=== PATIENT | female | born 1930 | race Caucasian/White ===

== ENCOUNTER 2016-07-13 14:24 | Emergency (ER) | payer MEDICARE, BC ==
[~2016-07-13] VITALS: Ht 157.5 cm; Wt 49.9 kg
[~2016-07-13 14:24] MED LIST: ATOR10TA PO; CARV6.252 PO; Rivaroxaban PO
[2016-07-13 14:37] VITALS: BP 172/91
--- NOTE | 2016-07-13 15:08 | NUR ---
PT TO RADIOLOGY FOR HEAD CT SCAN AND HIP XRAY VIA WHEELCHAIR.
== END 2016-07-13 16:05 | disposition home or self-care (01) ==
LOC: ER 14:26
DX: S70.02XA Contusion of left hip, initial encounter (principal); S70.01XA Contusion of right hip, initial encounter; M25.552 Pain in left hip; I10 Essential (primary) hypertension; M19.90 Unspecified osteoarthritis, unspecified site; I48.91 Unspecified atrial fibrillation; Z85.3 Personal history of malignant neoplasm of breast; W18.39XA Other fall on same level, initial encounter; Y93.89 Activity, other specified; Y92.89 Other specified places as the place of occurrence of the external cause; Y99.9 Unspecified external cause status
CPT/HCPCS: 70450-TC; 73510-TC; A4606; Z7610

== ENCOUNTER 2016-12-28 13:12 | Emergency (ER) | payer MEDICARE, BC ==
[~2016-12-28] VITALS: Ht 162.6 cm; Wt 61.2 kg
--- NOTE | 2016-12-28 13:15 | NUR ---
AAOX4, BIB RA 39 C/O WEAKNESS, WALKED INTO A LAUNDRYMAT FOR HELP. SKIN IS WARM AND DRY. SF=794IS/DL MILLWRIGHT. RR IS EVEN AND UNLABORED WITH NAD NOTED. ASSISTED TO HOSPITAL GOWN. PLACED ON MONITOR. WILL CONTINUOUSLY MONITOR THE PATIENT. DR HANNA AT BS FOR EVAL.
--- NOTE | 2016-12-28 13:16 | NUR ---
CALLED VICTORIANO CUSTOM BIKE BUILDER.
[2016-12-28] MEDS ORDERED: IV NS 0.9% 500 ML BAG IV ONE (13:30)
--- NOTE | 2016-12-28 13:30 | NUR ---
VICTORIANO, RETAIL BUYER AT
[2016-12-28 13:46] LABS: BASOPHILS % (AUTO) 0.8 % (0.0-2.0); EOSINOPHILS % (AUTO) 0.9 % (0.0-6.0); HEMATOCRIT 44 % (33-45); HEMOGLOBIN 14.7 g/dL (11.5-14.8); LYMPHOCYTES # (AUTO) 0.7 /CMM (0.8-4.8); LYMPHOCYTES % (AUTO) 13.4 % (20.0-44.0); MEAN CORPUSCULAR HEMOGLOBIN 32 PG (26.0-33.0); MEAN CORPUSCULAR HGB CONC 33 g/dl (31.0-36.0); MEAN CORPUSCULAR VOLUME 95 fL (82-100); MONOCYTES # (AUTO) 0.4 /CMM (0.1-1.30); MONOCYTES % (AUTO) 7.2 % (2.0-12.0); NEUTROPHILS % (AUTO) 77.7 % (43.0-81.0); PLATELET COUNT (AUTO) 199 /CMM (150-450); RDW COEFFICIENT OF VARIATION 12.6 (11.5-15.0); RED BLOOD CELL COUNT(AUTO) 4.66 MIL/uL (4.0-5.2); WHITE BLOOD COUNT (AUTO) 5.1 K/uL (4.3-11.0)
--- NOTE | 2016-12-28 13:51 | NUR ---
Social service consult requested by ED FRANTZ Arevalo for home safety. KRISTOPHER met with pt. bedside. Pt. is a 86 year old female who is alert and oriented x4. Pt. states she resides alone at [address], [address] in [place]. Pt. states, " I am always taken back by people questioning me about living alone". KRISTOPHER informed pt., she asked her the question to confirm her safety that home. Pt. is independent with her ADL's at home. Pt. understood. Pt. is a . Pt. has no children. Pt. has a sister Sharyn who has Cancer and is very sick. KRISTOPHER inquired if her sister Shannon is her emergency contact. Pt. states for now she is but it is a good question you ask. Pt. states she has a best friend in [place] but is the same age as her. Pt. stated she was heading to the library today and got lost and kept walking. Pt. states she stopped driving 6 months ago due to having syncope episodes. KRISTOPHER discussed assisted living options with pt. however pt. declined stating she likes her privacy. KRISTOPHER offered pt. resources to Assisted living, however pt. declined stating she has some at home. No other social service needs are required at this time. Pt. will need taxi transportation back home once medically cleared. KRISTOPHER is available if needed.
[2016-12-28 13:59] LABS: CALCIUM, SERUM 9.6 mg/dL (8.5-10.1); CARBON DIOXIDE 29 mmol/L (21-32); CHLORIDE 108 mmol/L (98-107); CREATININE 0.9 mg/dL (0.6-1.3); GLUCOSE 141 mg/dL (74-106); POTASSIUM 3.7 mmol/L (3.5-5.1); SODIUM SERUM 144 mmol/L (136-145); UREA NITROGEN, BLOOD 23 mg/dL (7-18)
--- NOTE | 2016-12-28 14:07 | NUR ---
XRAY IN PROGRESS AT BS
--- NOTE | 2016-12-28 14:50 | NUR ---
CALLED [facility] FOR TRANSPORT ETA OF 15 MINS WAS GIVEN. TRIP#[id number]
[2016-12-28 14:59] LABS: TROPONIN I < 0.017 ng/mL (0.00-0.056)
[2016-12-28 15:14] VITALS: BP 148/95
--- NOTE | 2016-12-28 15:16 | NUR ---
CALLED [facility] TO CANCEL TRANSPORT.
--- NOTE | 2016-12-28 15:18 | NUR ---
IV removed. Catheter intact and site benign. Pressure and 4x4 applied to site. No bleeding noted.Patient discharged to home in stable condition. Written and verbal after care instructions given. Patient verbalizes understanding of instruction.
--- NOTE | 2016-12-28 15:20 | NUR ---
TRANSPORTED PATIENT VIA TAXI. AAOX4. AMBULATES WITH STABLE GAIT.
== END 2016-12-28 15:21 | disposition home or self-care (01) ==
LOC: ER 13:13
DX: I48.91 Unspecified atrial fibrillation (principal); R53.1 Weakness; I10 Essential (primary) hypertension; M19.90 Unspecified osteoarthritis, unspecified site; C50.912 Malignant neoplasm of unspecified site of left female breast; Z98.890 Other specified postprocedural states; Z79.01 Long term (current) use of anticoagulants
CPT/HCPCS: 36415; 71010; 80048; 84484; 85025; 93005; 99285; A4606; J7040; Z7610

== ENCOUNTER 2017-06-05 23:01 | Emergency (ER) | payer MEDICARE, BC ==
[~2017-06-05] VITALS: Ht 167.6 cm; Wt 74.8 kg
--- NOTE | 2017-06-05 23:35 | NUR ---
PT BIBSELF C/O "VAGINAL BLEED SINCE 1800" PT AOX3 RR EVEN AND UNLABORED. NO SOB NOTED. NAD NOTED. NO NVD AT THIS TIME. PT GOWNED AND PLACED ON MONITOR WAITING FOR MD HARP.
[2017-06-06 00:08] LABS: BASOPHILS % (AUTO) 0.5 % (0.0-2.0); EOSINOPHILS % (AUTO) 1.5 % (0.0-6.0); HEMATOCRIT 41 % (33-45); HEMOGLOBIN 13.9 g/dL (11.5-14.8); LYMPHOCYTES # (AUTO) 0.9 /CMM (0.8-4.8); LYMPHOCYTES % (AUTO) 17.8 % (20.0-44.0); MEAN CORPUSCULAR HGB CONC 34 g/dl (31.0-36.0); MEAN CORPUSCULAR VOLUME 96 fL (82-100); MONOCYTES # (AUTO) 0.5 /CMM (0.1-1.30); MONOCYTES % (AUTO) 10.8 % (2.0-12.0); NEUTROPHILS # (AUTO) 3.4 /CMM (1.8-8.9); NEUTROPHILS % (AUTO) 69.4 % (43.0-81.0); PLATELET COUNT (AUTO) 234 /CMM (150-450); RDW COEFFICIENT OF VARIATION 14.3 (11.5-15.0); RED BLOOD CELL COUNT(AUTO) 4.25 MIL/uL (4.0-5.2)
[2017-06-06 00:19] LABS: CALCIUM, SERUM 9.7 mg/dL (8.5-10.1); CARBON DIOXIDE 30 mmol/L (21-32); CHLORIDE 104 mmol/L (98-107); CREATININE 0.8 mg/dL (0.6-1.3); GLUCOSE 92 mg/dL (74-106); SODIUM SERUM 144 mmol/L (136-145); UREA NITROGEN, BLOOD 28 mg/dL (7-18)
[2017-06-06 00:23] LABS: INR 1.76 (0.87-1.13)
[2017-06-06 00:25] LABS: ALANINE AMINOTRANSFERASE 46 U/L (12-78); ALBUMIN 4.1 g/dL (3.4-5.0); ALKALINE PHOSPHATASE 123 U/L (46-116); ASPARTATE AMINOTRANSFERASE 28 U/L (15-37); BILIRUBIN,DIRECT 0.2 mg/dL (0.0-0.2); BILIRUBIN,TOTAL 0.7 mg/dL (0.2-1.0); TOTAL PROTEIN, SERUM 7.8 g/dL (6.4-8.2)
[2017-06-06] MEDS ORDERED: IV NS 0.9% 1,000 ML BAG IV ONE (00:30)
[2017-06-06 00:34] LABS: APPEARANCE,URINE SL CLOUDY (CLEAR); BILIRUBIN,URINE NEGATIVE (NEGATIVE); BLOOD, URINE 3+ Ery/uL (NEGATIVE); COLOR,URINE YELLOW (YELLOW); KETONES,URINE NEGATIVE (NEGATIVE); LEUKOCYTE ESTERASE ,URINE NEGATIVE (NEGATIVE); NITRITE, URINE NEGATIVE (NEGATIVE); PH,URINE 5.5 (5.0-8.0); PROTEIN,URINE NEGATIVE (NEGATIVE); UGLUCOSE NEGATIVE (NEGATIVE); UROBILINOGEN,URINE 0.2 EU/dL (0.2)
[2017-06-06 00:39] LABS: BACTERIA,URINE Few /HPF (None Seen); RBC,URINE 81-100 /HPF (0-2); SQUAMOUS EPITHELIAL CELL,UR Few /HPF (None Seen); WBC,URINE 0-2 /HPF (0-3)
[2017-06-06] MEDS ORDERED: IOHEXOL-300 100 ML VIAL IV ONE (00:55)
[2017-06-06] MEDS ORDERED: IV NS 0.9% 250 ML IV ONE (00:55)
--- NOTE | 2017-06-06 00:56 | NUR ---
PT TO CT.
--- NOTE | 2017-06-06 02:20 | NUR ---
DR. RODGERS AT BEDSIDE SPEAKING TO PT REGARDING RESULTS.
[2017-06-06] MEDS ORDERED: POTASSIUM CHLORIDE 20 MEQ TAB.PRT.SR PO ONE ×2 (02:45→03:00)
--- NOTE | 2017-06-06 03:24 | NUR ---
IV removed. Catheter intact and site benign. Pressure and 4x4 applied to site. No bleeding noted. Patient discharged to home in stable condition. Written and verbal after care instructions given. Patient verbalizes understanding of instruction. ambulatory with a steady gait.
[2017-06-06 03:30] VITALS: BP 148/68
== END 2017-06-06 03:30 | disposition home or self-care (01) ==
LOC: ER 23:03
DX: N93.9 Abnormal uterine and vaginal bleeding, unspecified (principal); I11.0 Hypertensive heart disease with heart failure; I50.9 Heart failure, unspecified; I48.91 Unspecified atrial fibrillation; M19.90 Unspecified osteoarthritis, unspecified site; Z85.3 Personal history of malignant neoplasm of breast; Z60.2 Problems related to living alone; Z79.01 Long term (current) use of anticoagulants
CPT/HCPCS: 36415; 80048-TC; 80076-TC; 81000-TC; 85025-TC; 85730-TC; A4606; J7030; J7050; Q9967; Z7610

== ENCOUNTER 2017-07-02 10:29 | Emergency (ER) | payer MEDICARE, BC ==
[~2017-07-02] VITALS: Ht 162.6 cm; Wt 63.5 kg
--- NOTE | 2017-07-02 10:45 | NUR ---
BB SISTER FOR RT LOW BACK PAIN S/P FALL ON SATURDAY, VAG BLEEDING 2 DAYS AGO, H/O SAME SEEN HERE LAST MONTH FOR DYSFUNCTIONAL UTERINE BLEEDING. ALSO C/O LEFT LOWER LEG SWELLING. A/OX 3, BREATHING EVEN AND UNLABORED. NO SOB, NAD, VITALS STABLE. SAFETY AND COMFORT MEASURES IN PLACE. AWAITING MD ORDERS.
[2017-07-02 11:06] LABS: BASOPHILS % (AUTO) 0.8 % (0.0-2.0); EOSINOPHILS % (AUTO) 1.2 % (0.0-6.0); HEMATOCRIT 37 % (33-45); HEMOGLOBIN 12.7 g/dL (11.5-14.8); LYMPHOCYTES # (AUTO) 0.6 /CMM (0.8-4.8); LYMPHOCYTES % (AUTO) 13.7 % (20.0-44.0); MEAN CORPUSCULAR HGB CONC 34 g/dl (31.0-36.0); MEAN CORPUSCULAR VOLUME 94 fL (82-100); MONOCYTES # (AUTO) 0.4 /CMM (0.1-1.30); MONOCYTES % (AUTO) 10.4 % (2.0-12.0); NEUTROPHILS # (AUTO) 3.2 /CMM (1.8-8.9); NEUTROPHILS % (AUTO) 73.9 % (43.0-81.0); PLATELET COUNT (AUTO) 168 /CMM (150-450); RDW COEFFICIENT OF VARIATION 12.9 (11.5-15.0); RED BLOOD CELL COUNT(AUTO) 3.98 MIL/uL (4.0-5.2); WHITE BLOOD COUNT (AUTO) 4.3 K/uL (4.3-11.0)
--- NOTE | 2017-07-02 11:12 | NUR ---
US TECH AT BEDSIDE, - DVT.
[2017-07-02 11:19] LABS: INR 1.38 (0.85-1.15)
[2017-07-02 11:22] LABS: CALCIUM, SERUM 9.5 mg/dL (8.5-10.1); CARBON DIOXIDE 29 mmol/L (21-32); CHLORIDE 106 mmol/L (98-107); CREATININE 0.8 mg/dL (0.6-1.3); GLUCOSE 146 mg/dL (74-106); POTASSIUM 3.6 mmol/L (3.5-5.1); SODIUM SERUM 143 mmol/L (136-145); UREA NITROGEN, BLOOD 23 mg/dL (7-18)
[2017-07-02 11:32] LABS: B-TYPE NATRIURETIC PEPTIDE 1677 PG/ML (0-125)
[2017-07-02 12:26] VITALS: BP 134/81
--- NOTE | 2017-07-02 12:27 | NUR ---
Patient discharged to home in stable condition. Written and verbal after care instructions given. Patient verbalizes understanding of instruction.
== END 2017-07-02 12:26 | disposition home or self-care (01) ==
LOC: ER 10:30
DX: S20.221A Contusion of right back wall of thorax, initial encounter (principal); M79.89 Other specified soft tissue disorders; N93.8 Other specified abnormal uterine and vaginal bleeding; I10 Essential (primary) hypertension; I48.91 Unspecified atrial fibrillation; M19.90 Unspecified osteoarthritis, unspecified site; Z85.3 Personal history of malignant neoplasm of breast; Z60.2 Problems related to living alone; W18.39XA Other fall on same level, initial encounter; Y93.89 Activity, other specified; Y92.89 Other specified places as the place of occurrence of the external cause; Y99.8 Other external cause status
CPT/HCPCS: 36415; 80048; 83880; 85025; 85730; 93971; 99285; A4606; Z7610

== ENCOUNTER 2017-12-16 09:49 | Emergency (ER) | payer MEDICARE, BC ==
[~2017-12-16] VITALS: Ht 157.5 cm; Wt 56.7 kg
--- NOTE | 2017-12-16 09:55 | NUR ---
BIB RA, CAME IN DUE TO DIZZENESS, PATIENT IS ALERT AND ORIENTED X 3. ON ROOM AIR AND TOLERATED WELL. BREATHING EVENLY AND UNLABORED. KEPT COMFORTABLE IN BED. WILL CONTINUE TO MONITOR ACCORDINGLY.
--- NOTE | 2017-12-16 10:00 | NUR ---
DR. PULIDO AT BEDSIDE FOR EVAL.
[2017-12-16 10:23] LABS: EOSINOPHILS % (AUTO) 0.4 % (0.0-6.0); HEMATOCRIT 42 % (33-45); HEMOGLOBIN 14.3 g/dL (11.5-14.8); LYMPHOCYTES # (AUTO) 0.5 /CMM (0.8-4.8); LYMPHOCYTES % (AUTO) 10.7 % (20.0-44.0); MEAN CORPUSCULAR HGB CONC 34 g/dl (31.0-36.0); MEAN CORPUSCULAR VOLUME 94 fL (82-100); MONOCYTES # (AUTO) 0.4 /CMM (0.1-1.30); MONOCYTES % (AUTO) 8.5 % (2.0-12.0); NEUTROPHILS # (AUTO) 3.4 /CMM (1.8-8.9); NEUTROPHILS % (AUTO) 79.4 % (43.0-81.0); PLATELET COUNT (AUTO) 211 /CMM (150-450); RDW COEFFICIENT OF VARIATION 12.3 (11.5-15.0); RED BLOOD CELL COUNT(AUTO) 4.52 MIL/uL (4.0-5.2); WHITE BLOOD COUNT (AUTO) 4.4 K/uL (4.3-11.0)
[2017-12-16 10:32] LABS: CALCIUM, SERUM 9.4 mg/dL (8.5-10.1); CARBON DIOXIDE 33 mmol/L (21-32); CHLORIDE 106 mmol/L (98-107); CREATININE 0.8 mg/dL (0.6-1.3); GLUCOSE 137 mg/dL (74-106); POTASSIUM 3.3 mmol/L (3.5-5.1); SODIUM SERUM 144 mmol/L (136-145); UREA NITROGEN, BLOOD 31 mg/dL (7-18)
[2017-12-16 10:38] LABS: ALANINE AMINOTRANSFERASE 26 U/L (12-78); ALBUMIN 3.6 g/dL (3.4-5.0); ALKALINE PHOSPHATASE 93 U/L (46-116); ASPARTATE AMINOTRANSFERASE 20 U/L (15-37); BILIRUBIN,DIRECT 0.2 mg/dL (0.0-0.2); BILIRUBIN,TOTAL 1.1 mg/dL (0.2-1.0); TOTAL PROTEIN, SERUM 6.5 g/dL (6.4-8.2)
[2017-12-16 10:39] LABS: APPEARANCE,URINE Clear (CLEAR); BILIRUBIN,URINE Negative (NEGATIVE); BLOOD, URINE Trace-intact Ery/uL (NEGATIVE); COLOR,URINE Yellow (YELLOW); KETONES,URINE 15 (NEGATIVE); LEUKOCYTE ESTERASE ,URINE Negative (NEGATIVE); NITRITE, URINE Negative (NEGATIVE); PROTEIN,URINE Trace mg/dl (NEGATIVE); UGLUCOSE Negative (NEGATIVE); UROBILINOGEN,URINE 0.2 EU/dL (0.2)
[2017-12-16 10:40] LABS: TROPONIN I < 0.017 ng/mL (0.00-0.056)
--- NOTE | 2017-12-16 10:40 | NUR ---
TRANSPORTED TO RADIOLOGY DEPARTMENT FOR CT VIA RHANA.
[2017-12-16 10:45] LABS: BACTERIA,URINE None seen /HPF (None Seen); SQUAMOUS EPITHELIAL CELL,UR Few /HPF (None Seen); WBC,URINE 0-2 /HPF (0-3)
[2017-12-16 11:12] LABS: INR 3.23 (0.85-1.15)
[2017-12-16 13:03] VITALS: BP 134/70
--- NOTE | 2017-12-16 13:04 | NUR ---
PATIENT DISCHARGE VIA WHEELCHAIR ACCOMANIED BY RN. LEFT IN STABLE CONDITION.
== END 2017-12-16 13:05 | disposition home or self-care (01) ==
LOC: ER 09:50
DX: R53.1 Weakness (principal); I10 Essential (primary) hypertension; I48.91 Unspecified atrial fibrillation; F41.9 Anxiety disorder, unspecified; Z85.3 Personal history of malignant neoplasm of breast; Z88.8 Allergy status to other drugs, medicaments and biological substances; Z60.2 Problems related to living alone
CPT/HCPCS: 36415; 70450; 71045; 80048; 80076; 81001; 83605; 84484; 85025; 85730; 87040 ×2; 87086; 93005; 99285; A4606; 81000-TC; Z7610

== ENCOUNTER 2018-02-12 20:14 | Inpatient (IN) | payer MEDICARE, BC ==
[~2018-02-12] VITALS: Ht 160 cm; Wt 56.2 kg
[2018-02-12 22:10] VITALS: BP 121/58
--- NOTE | 2018-02-12 22:10 | NUR ---
GPS/RN-NOTES ADMITTED AN 87 YR-OLD FEMALE PATIENT FROM [facility]. PATIENT ON 5150 FOR GD. PATIENT ARRIVED ON THIS UNIT AT 2210 VIA STRETCHER WITH 2 [facility] CREW. PER HOLD PATIENT IS PARANOID, DISHEVELED, AGITATED, THREATENING BEHAVIOR. PATIENT DOES NOT SLEEP, WANDERS AT NIGHT. UPON FACE TO FACE ASSESSMENT PATIENT ASLEEP, AROUSES EASILY. NO MANIFESTATION OF PAIN OR DISCOMFORT AT THIS TIME. PATIENT WITH NO DISTRESS, NOR SOB AT THIS TIME. RESPIRATION IS EVEN AND UNLABORED. PATIENT IS A/O X 1, CONFUSED, REORIENTATION PROVIDED. PATIENT IS UNDER THE PSYCHIATRIC CARE OF DR. KUMAR AND THE MEDICAL CARE OF MJ HANCOCK. PATIENT BELONGINGS WERE INVENTORIED AND CHECKED FOR CONTRABAND. SKIN ASSESSMENT DONE. FALL PRECAUTIONS IMPLEMENTED AT ALL TIMES. WILL CONTINUE TO MONITOR Q15 MIN CHECK FOR SAFETY AND BEHAVIOR. Addendum: 02/13/18 at 0604 by DALY CANO RN PATIENT NOTED TO BE ANXIOUS, EASILY GETS IRRITABLE, DISHEVELED AND UNKEMPT.
[2018-02-12] MEDS ORDERED: CEPH-570 PO (22:52)
[2018-02-12] MEDS ORDERED: LABE100T5 PO (22:53)
[2018-02-12] MEDS ORDERED: WARF4TAB41 PO (22:54)
[2018-02-12] MEDS ORDERED: VALS40TA4 PO (23:02)
[2018-02-12] MEDS ORDERED: ACETAMINOPHEN 325 MG TABLET PO PRN (23:30)
[2018-02-12] MEDS ORDERED: MAG HYDROX/AL HYDROX/SIMETH 30 ML UDC PO PRN (23:30)
[2018-02-12] MEDS ORDERED: MAGNESIUM HYDROXIDE 30 ML UDC PO PRN (23:30)
[2018-02-13 07:07] LABS: BASOPHILS % (AUTO) 0.5 % (0.0-2.0); EOSINOPHILS % (AUTO) 0.3 % (0.0-6.0); HEMATOCRIT 44 % (33-45); HEMOGLOBIN 14.5 g/dL (11.5-14.8); LYMPHOCYTES # (AUTO) 0.7 /CMM (0.8-4.8); LYMPHOCYTES % (AUTO) 14.2 % (20.0-44.0); MEAN CORPUSCULAR HGB CONC 33 g/dl (31.0-36.0); MEAN CORPUSCULAR VOLUME 97 fL (82-100); MONOCYTES # (AUTO) 0.7 /CMM (0.1-1.30); MONOCYTES % (AUTO) 12.9 % (2.0-12.0); NEUTROPHILS # (AUTO) 3.7 /CMM (1.8-8.9); NEUTROPHILS % (AUTO) 72.1 % (43.0-81.0); PLATELET COUNT (AUTO) 242 /CMM (150-450); RED BLOOD CELL COUNT(AUTO) 4.53 MIL/uL (4.0-5.2); WHITE BLOOD COUNT (AUTO) 5.1 K/uL (4.3-11.0)
[2018-02-13 07:20] LABS: ALANINE AMINOTRANSFERASE 25 U/L (12-78); ALBUMIN 3.4 g/dL (3.4-5.0); ALKALINE PHOSPHATASE 110 U/L (46-116); ASPARTATE AMINOTRANSFERASE 21 U/L (15-37); BILIRUBIN,TOTAL 1.2 mg/dL (0.2-1.0); CALCIUM, SERUM 9.7 mg/dL (8.5-10.1); CARBON DIOXIDE 32 mmol/L (21-32); CHLORIDE 106 mmol/L (98-107); CREATININE 0.7 mg/dL (0.6-1.3); GLUCOSE 108 mg/dL (74-106); POTASSIUM 2.9 mmol/L (3.5-5.1); SODIUM SERUM 147 mmol/L (136-145); TOTAL PROTEIN, SERUM 7.3 g/dL (6.4-8.2); UREA NITROGEN, BLOOD 16 mg/dL (7-18)
[2018-02-13 07:25] LABS: CHOLESTEROL 167 mg/dL (<200); HDL CHOLESTEROL 84 mg/dL (40-60); LDL 78 mg/dL (0-99); TRIGLYCERIDES 51 mg/dL (30-150)
[2018-02-13 08:00] VITALS: BP 147/76
[2018-02-13] MEDS: VALSARTAN 40 MG TABLET PO SCH (09:30)
[2018-02-13] MEDS: clonazePAM 0.5 MG TABLET PO PRN (09:30)
[2018-02-13] MEDS: LABETALOL HCL (100MG) 100 MG TABLET PO SCH ×2 (09:30→17:18)
[2018-02-13] MEDS: CEPHALEXIN MONOHYDRATE 500 MG CAPSULE PO SCH ×3 (09:30→17:17)
[2018-02-13] MEDS: CARVEDILOL 6.25 MG TABLET PO SCH ×2 (09:31→20:34)
[2018-02-13] MEDS: POTASSIUM CHLORIDE 20 MEQ TAB.PRT.SR PO SCH ×3 (10:19→12:13)
--- NOTE | 2018-02-13 12:04 | NUR ---
KRISTOPHER contacted pts sister Sharyn [phone] for collateral information and discharge planning. Addendum: 02/14/18 at 0928 by HAILEE SUMMERS Sister Sharyn, who stated pt began showing signs of Dementia in August and also stated that she began hallucinating a couple of months ago, stating that she would see bodies in her bed. Pts sister also stated that pt forgets how to turn the stove on and off and would sometimes forget to eat.
--- NOTE | 2018-02-13 12:04 | NUR ---
SW was contacted by Mitzi, pediatric social worker at [facility] [phone], who provided SW will collateral information. Addendum: 02/13/18 at 4947 by HAILEE SUMMERS Mitzi also informed SW that she has filed an APS report for self neglect. Case #: [id number]. Mitzi also provided SW will pts apartment managers phone number Carli: [phone]. Addendum: 02/14/18 at 0103 by HAILEE SUMMERS Mtizi reported that apt clinic business manager informed her that pts current living conditions are not sanitary and safe. Mitzi stated that pts apt smells like urine and there is feces in the bathroom. She also stated that pt has not paid rent this month.
--- NOTE | 2018-02-13 12:48 | NUR ---
INITIAL DISCHARGE PLAN: Patient needs placement and will be discharged to a SNF. SW will help form a safe and proper discharge in collaboration with pts sister and MD.
[2018-02-13] MEDS ORDERED: POTASSIUM CHLORIDE 20 MEQ TAB.PRT.SR PO SCH (13:00)
[2018-02-13 13:16] LABS: THYROID STIMULATING HORMONE 2.093 uIU/mL (0.358-3.74)
[2018-02-13] MEDS: QUETIAPINE FUMARATE 25 MG TABLET PO SCH ×2 (13:20→17:17)
[2018-02-13 16:00] VITALS: BP 132/77
[2018-02-13] MEDS: RIVAROXABAN 15 MG TABLET PO SCH (17:24)
[2018-02-13 20:00] VITALS: BP 167/83
--- NOTE | 2018-02-13 20:12 | NUR ---
PATIENT WENT DOWN TO HAVE CT HEAD DONE.
--- NOTE | 2018-02-13 21:05 | NUR ---
PATIENT UPSET, IRRITABLE, AMBULATES/UNSTEADY GAIT. NEARLY FELL WHILE ON HER WAY TO THE TOILET. ATTEMPTED TO GET OUT BY GOING TO THE THE DOOR , AWOL RISK. VERY UNCOOPERATIVE, REPEATS HER QUESTIONS WHY THIS, WHY THAT, STATES, "I AM GOING HOME TODAY". VERY CONFUSED.
[2018-02-13] MEDS: ATORVASTATIN 10 MG TABLET PO SCH (21:54)
[2018-02-13] MEDS: MIRTAZAPINE 15 MG TABLET PO SCH (21:54)
[2018-02-14 00:45] VITALS: BP 167/83
[2018-02-14 07:11] LABS: APPEARANCE,URINE CLEAR (CLEAR); BILIRUBIN,URINE NEGATIVE (NEGATIVE); BLOOD, URINE NEGATIVE Ery/uL (NEGATIVE); COLOR,URINE YELLOW (YELLOW); KETONES,URINE 1+ (NEGATIVE); LEUKOCYTE ESTERASE ,URINE NEGATIVE (NEGATIVE); NITRITE, URINE NEGATIVE (NEGATIVE); PH,URINE 8.5 (5.0-8.0); PROTEIN,URINE TRACE mg/dl (NEGATIVE); UGLUCOSE NEGATIVE (NEGATIVE); UROBILINOGEN,URINE 0.2 EU/dL (0.2)
[2018-02-14 07:26] LABS: RBC,URINE NONE SEEN /HPF (0-2); WBC,URINE 0-2 /HPF (0-3)
[2018-02-14 07:27] LABS: BACTERIA,URINE None seen /HPF (None Seen); SQUAMOUS EPITHELIAL CELL,UR Few /HPF (None Seen)
[2018-02-14 07:45] LABS: BASOPHILS % (AUTO) 1.1 % (0.0-2.0); EOSINOPHILS % (AUTO) 1.4 % (0.0-6.0); HEMATOCRIT 43 % (33-45); HEMOGLOBIN 14.3 g/dL (11.5-14.8); LYMPHOCYTES # (AUTO) 0.9 /CMM (0.8-4.8); LYMPHOCYTES % (AUTO) 20.2 % (20.0-44.0); MEAN CORPUSCULAR HGB CONC 33 g/dl (31.0-36.0); MEAN CORPUSCULAR VOLUME 97 fL (82-100); MONOCYTES # (AUTO) 0.5 /CMM (0.1-1.30); NEUTROPHILS # (AUTO) 2.8 /CMM (1.8-8.9); NEUTROPHILS % (AUTO) 65.3 % (43.0-81.0); PLATELET COUNT (AUTO) 193 /CMM (150-450); RED BLOOD CELL COUNT(AUTO) 4.48 MIL/uL (4.0-5.2); WHITE BLOOD COUNT (AUTO) 4.2 K/uL (4.3-11.0)
[2018-02-14 07:59] LABS: ALANINE AMINOTRANSFERASE 22 U/L (12-78); ALBUMIN 2.9 g/dL (3.4-5.0); ALKALINE PHOSPHATASE 96 U/L (46-116); ASPARTATE AMINOTRANSFERASE 23 U/L (15-37); CALCIUM, SERUM 9.8 mg/dL (8.5-10.1); CARBON DIOXIDE 29 mmol/L (21-32); CHLORIDE 108 mmol/L (98-107); CREATININE 0.6 mg/dL (0.6-1.3); GLUCOSE 91 mg/dL (74-106); PHOSPHORUS 2.3 mg/dL (2.5-4.9); POTASSIUM 3.7 mmol/L (3.5-5.1); SODIUM SERUM 146 mmol/L (136-145); TOTAL PROTEIN, SERUM 6.5 g/dL (6.4-8.2); UREA NITROGEN, BLOOD 16 mg/dL (7-18)
[2018-02-14 08:00] VITALS: BP 161/95
[2018-02-14] MEDS: CARVEDILOL 6.25 MG TABLET PO SCH ×2 (08:50→20:03)
[2018-02-14] MEDS: QUETIAPINE FUMARATE 25 MG TABLET PO SCH ×2 (08:50→16:14)
[2018-02-14] MEDS: CEPHALEXIN MONOHYDRATE 500 MG CAPSULE PO SCH ×3 (08:50→16:14)
[2018-02-14] MEDS: LABETALOL HCL (100MG) 100 MG TABLET PO SCH ×2 (08:50→16:16)
[2018-02-14] MEDS: VALSARTAN 40 MG TABLET PO SCH (08:51)
--- NOTE | 2018-02-14 09:05 | NUR ---
KRISTOPHER received a phone call from pts sister Sharyn [phone] stating that she feels it isn't a good idea to discharge pt to a SNF due to being afraid pt will go "ballistic" if she's discharged to a SNF and not home. KRISTOPHER explained that pt is currently on a hold for grave disability and also informed her the manager social work at [facility] filed an APS report for self neglect and informed SW that pts living conditions were not sanitary and safe. KRISTOPHER also stated to pts sister that due to pt living alone without a career transition specialist and having an open APS case pt cannot be discharged home. KRISTOPHER reminded pts sister that she informed her that pt was not able to do ADL's and would sometimes forget to turn the stove on or off. SW informed pts sister that hospital is liable for a safe and proper discharge; discharging home at the moment is not a safe discharge plan. KRISTOPHER asked pts sister if pt can live with her and she stated that she could not due to conflict between them. KRISTOPHER informed sister that she would discuss this matter with pts psychiatrist Dr. Sparrow and SW supervisor winding department.
[2018-02-14] MEDS ORDERED: K PHOS NEUTRAL 250 MG TABLET PO ONE (10:00)
[2018-02-14 16:00] VITALS: BP 127/83
[2018-02-14] MEDS: RIVAROXABAN 15 MG TABLET PO SCH (16:18)
--- NOTE | 2018-02-14 19:37 | NUR ---
SISTER VISITING, PATIENT UP ON THE GENIA-CHAIR, VERY UNCOOPERATIVE, QUESTIONS AND ARGUES ABOUT HER MEDICATIONS, EASILY GETS IRRITABLE. FAMILY REQUESTED TO ADMINISTER MEDS WHILE SISTER IS AROUND. ROUTINE MEDS WITH SLEEPING WILL BE ADMINISTERED AROUND 1999.
[2018-02-14 20:00] VITALS: BP 132/82
[2018-02-14] MEDS: ATORVASTATIN 10 MG TABLET PO SCH (20:04)
[2018-02-14] MEDS: MIRTAZAPINE 15 MG TABLET PO SCH (20:04)
[2018-02-14] MEDS: TEMAZEPAM 7.5 MG CAPSULE PO PRN (20:04)
--- NOTE | 2018-02-14 20:07 | NUR ---
ROUTINE MEDICATIONS ADMINISTERED AT THIS TIME. PATIENT ARGUED ABOUT HER MEDICATIONS, SAYING SHE HAD THEM ALREADY, EXPLAINED THAT THESE ARE HER ROUTINE NIGHT MEDICATIONS AND A SLEEPING PILL. SISTER VISITS AND IS AWARE OF HER BEHAVIOR REGARDING HER MEDS. PATIENT TOOK HER MEDICATIONS WITH APPLE JUICE.
[2018-02-15 08:00] VITALS: BP 153/82
[2018-02-15] MEDS: VALSARTAN 40 MG TABLET PO SCH (08:24)
[2018-02-15] MEDS: CARVEDILOL 6.25 MG TABLET PO SCH ×3 (08:24→20:54)
[2018-02-15] MEDS: LABETALOL HCL (100MG) 100 MG TABLET PO SCH ×2 (08:24→16:21)
[2018-02-15] MEDS: CEPHALEXIN MONOHYDRATE 500 MG CAPSULE PO SCH ×3 (08:24→16:20)
[2018-02-15] MEDS: QUETIAPINE FUMARATE 25 MG TABLET PO SCH ×2 (08:24→16:20)
[2018-02-15] MEDS: MEMANTINE HCL 5 MG TABLET PO SCH (08:32)
[2018-02-15 16:00] VITALS: BP 142/73
[2018-02-15] MEDS: RIVAROXABAN 15 MG TABLET PO SCH (16:23)
--- NOTE | 2018-02-15 18:43 | NUR ---
GPS/RN-NOTES NOTED PATIENT SCREAMING AND YELLING AT STAFF WITH AGGRESSIVE BEHAVIOR DURING PATIENT CARE/HITTING STAFF WITH BOTH HANDS. REORIENTED AND REDIRECTED PATIENT, PATIENT CALM DOWN AND COOPERATE.
[2018-02-15 20:00] VITALS: BP 139/74
--- NOTE | 2018-02-15 20:55 | NUR ---
GPS RN NOTES Patient refused to take due meds Carvedilol claiming she is not taking any medications other what she is taking at home. Explained to the patient and sister the indication and risk of not taking the medications, patient and the sister verbalized understanding. Will continue to monitor.
[2018-02-15] MEDS: DONEPEZIL 5 MG TABLET PO SCH (21:47)
[2018-02-15] MEDS: MIRTAZAPINE 15 MG TABLET PO SCH (21:47)
[2018-02-15] MEDS: ATORVASTATIN 10 MG TABLET PO SCH (21:47)
[2018-02-16 08:00] VITALS: BP 153/77
[2018-02-16] MEDS: QUETIAPINE FUMARATE 25 MG TABLET PO SCH ×3 (09:00→16:42)
[2018-02-16] MEDS: MEMANTINE HCL 5 MG TABLET PO SCH ×2 (09:00→09:05)
[2018-02-16] MEDS: CEPHALEXIN MONOHYDRATE 500 MG CAPSULE PO SCH ×3 (09:04→16:35)
[2018-02-16] MEDS: VALSARTAN 40 MG TABLET PO SCH (09:04)
[2018-02-16] MEDS: LABETALOL HCL (100MG) 100 MG TABLET PO SCH ×2 (09:05→16:38)
[2018-02-16] MEDS: TRAMADOL HCL 50 MG TABLET PO PRN (14:53)
--- NOTE | 2018-02-16 14:53 | NUR ---
RN NOTES ADMINISTERED TRAMADOL 50 MG PO PRN FOR LOWER BACK PAIN 09/17 PER PATIENT REQUEST, V/S TAKEN BP- 136/78, P-82, CONTINUED MONITORING.
[2018-02-16 16:00] VITALS: BP 125/67
--- NOTE | 2018-02-16 16:38 | NUR ---
RN NOTES ADMINISTERED TYLENOL 650 MG PO PRN FOR LOWER BACK PAIN 07/18 PER PATIENT REQUEST. ALSO PER MD WILKINS ORDERED X-RAY PELVIC AREA. CONTINUED MONITORING.
[2018-02-16] MEDS: RIVAROXABAN 15 MG TABLET PO SCH (16:39)
[2018-02-16] MEDS ORDERED: BESIVANCE LEFTEYE SCH (17:00)
[2018-02-16] MEDS ORDERED: DUREZOL LEFTEYE SCH (17:00)
[2018-02-16 20:12] VITALS: BP 105/62
[2018-02-16] MEDS: CARVEDILOL 6.25 MG TABLET PO SCH (20:24)
--- NOTE | 2018-02-16 21:20 | NUR ---
PT BG- 405 ADMINISTERED 13 UNITS OF LANTUS AND 10 UNITS OF HUMULIN PER SLIDING SCALE, WILL CONTINUE TO MONITOR Addendum: 02/17/18 at 0642 by FERN NATION RN wrong pt
[2018-02-16] MEDS: ATORVASTATIN 10 MG TABLET PO SCH (21:35)
[2018-02-16] MEDS: MIRTAZAPINE 15 MG TABLET PO SCH (21:35)
[2018-02-16] MEDS: DONEPEZIL 5 MG TABLET PO SCH (21:35)
[2018-02-17 08:00] VITALS: BP 146/72
[2018-02-17] MEDS: CEPHALEXIN MONOHYDRATE 500 MG CAPSULE PO SCH ×3 (08:32→16:53)
[2018-02-17] MEDS: VALSARTAN 40 MG TABLET PO SCH (08:32)
[2018-02-17] MEDS: CARVEDILOL 6.25 MG TABLET PO SCH ×2 (08:33→21:40)
[2018-02-17] MEDS: LABETALOL HCL (100MG) 100 MG TABLET PO SCH ×2 (08:33→16:53)
[2018-02-17] MEDS: QUETIAPINE FUMARATE 25 MG TABLET PO SCH ×2 (08:34→16:52)
[2018-02-17] MEDS: DUREZOL LEFTEYE SCH (08:37)
[2018-02-17] MEDS: MEMANTINE HCL 5 MG TABLET PO SCH (08:38)
[2018-02-17] MEDS: BESIVANCE LEFTEYE SCH (08:38)
[2018-02-17] MEDS: TRAMADOL HCL 50 MG TABLET PO PRN (11:54)
--- NOTE | 2018-02-17 14:50 | NUR ---
SW received a phone call from pts sister Sharyn [phone] stating that she has identified a Memory Care Facility for pt. Sister stated she would like pt to be referred to [address] [address] .
--- NOTE | 2018-02-17 14:53 | NUR ---
KRISTOPHER contacted Aracely, gsa coordinator at [address] [address] and requested referral process information. Aracely will fax Physicians Report to KRISTOPHER to fill out. Per Aracely, Physicians Report needs to be completed first before coming to assess pt.
[2018-02-17] MEDS: clonazePAM 0.5 MG TABLET PO PRN (15:32)
[2018-02-17 16:00] VITALS: BP 128/68
[2018-02-17] MEDS: RIVAROXABAN 15 MG TABLET PO SCH (17:02)
--- NOTE | 2018-02-17 19:30 | NUR ---
GPS RN NOTE, RECEIVED PATIENT AWAKE AND IN BED, NO S/S OR COMPLAINTS OF PAIN AT THIS TIME. PATIENT IS DISPLAYING NO S/S OF APPARENT DISTRESS AT THIS TIME. PATIENT BREATHING IS UNLABORED WITH EQUAL RISE AND FALL OF THE CHEST. PATIENT IS ALERT AND ORIENTED X 2 ON ROOM AIR WITH A SPO2 OF 98%. PATIENT IS MED COMPLIANT, CONFUSED AT TIMES, COOPERATIVE, DEPRESSED, ANXIOUS, DISORGANIZED, PARANOID, AND NEEDS REDIRECTION. PATIENT HAS A PATIENT DENIES SUICIDE IDEATIONS AND HOMICIDAL IDEATIONS AT THIS TIME. PATIENT ASSISTED WITH TURNING AND REPOSITIONING Q 2HRS AND PRN FOR COMFORT AND CIRCULATION. PATIENT HAS NO NEEDS AT THIS TIME. PATIENT EDUCATED ON THE USE OF THE CALL JEFFREY. PATIENT BED SIDE RAILS UP X 2 FOR SAFETY, BED IS LOCKED, LOW, AND I WILL CONTINUE TO MONITOR AND MAINTAIN SAFETY Q15 MIN WITH THE HELP OF STAFF.
[2018-02-17 20:21] VITALS: BP 147/98
[2018-02-17] MEDS: ATORVASTATIN 10 MG TABLET PO SCH (21:39)
[2018-02-17] MEDS: MIRTAZAPINE 15 MG TABLET PO SCH (21:40)
[2018-02-17] MEDS: DONEPEZIL 5 MG TABLET PO SCH (21:40)
[2018-02-18 08:00] VITALS: BP 153/75
[2018-02-18] MEDS: QUETIAPINE FUMARATE 25 MG TABLET PO SCH ×4 (08:45→17:47)
[2018-02-18] MEDS: CARVEDILOL 6.25 MG TABLET PO SCH ×2 (08:46→21:18)
[2018-02-18] MEDS: LABETALOL HCL (100MG) 100 MG TABLET PO SCH ×2 (08:46→17:47)
[2018-02-18] MEDS: CEPHALEXIN MONOHYDRATE 500 MG CAPSULE PO SCH ×4 (08:46→17:47)
[2018-02-18] MEDS: VALSARTAN 40 MG TABLET PO SCH (08:46)
[2018-02-18] MEDS: MEMANTINE HCL 5 MG TABLET PO SCH (08:47)
[2018-02-18] MEDS: BESIVANCE LEFTEYE SCH (08:50)
[2018-02-18] MEDS: DUREZOL LEFTEYE SCH (08:50)
--- NOTE | 2018-02-18 09:28 | NUR ---
SW received physicians report from Aracely, marketing services coordinator at [address] [address] , SW placed in pts chart for hospitalist to fill and sign.
--- NOTE | 2018-02-18 14:39 | NUR ---
KRISTOPHER faxed [phone] Physician Report form and clinical information to Aracely home care coordinator at [address] [address] for review.
--- NOTE | 2018-02-18 14:40 | NUR ---
KRISTOPHER contacted Aracely record center coordinator at [address] [address] and left a voicemail stating referral was faxed.
--- NOTE | 2018-02-18 15:26 | NUR ---
KRISTOPHER contacted pts sister Sharyn [phone] to inform her SW had faxed referral and physicians report to Aracely, qualitative field coordinator at [facility] and would follow up. SW also encouraged pts sister to follow up with Aracely.
[2018-02-18 16:17] VITALS: BP 152/75
[2018-02-18] MEDS: RIVAROXABAN 15 MG TABLET PO SCH (17:46)
[2018-02-18 20:25] VITALS: BP 132/61
[2018-02-18] MEDS: ATORVASTATIN 10 MG TABLET PO SCH (21:17)
[2018-02-18] MEDS: MIRTAZAPINE 15 MG TABLET PO SCH (21:19)
[2018-02-18] MEDS: DONEPEZIL 5 MG TABLET PO SCH (21:19)
[2018-02-19 08:00] VITALS: BP 147/98
[2018-02-19] MEDS: CEPHALEXIN MONOHYDRATE 500 MG CAPSULE PO SCH ×4 (09:00→17:00)
[2018-02-19] MEDS: MEMANTINE HCL 5 MG TABLET PO SCH ×2 (09:00→09:21)
[2018-02-19] MEDS: QUETIAPINE FUMARATE 25 MG TABLET PO SCH ×4 (09:00→17:00)
[2018-02-19] MEDS: DUREZOL LEFTEYE SCH ×2 (09:00→09:21)
[2018-02-19] MEDS: LABETALOL HCL (100MG) 100 MG TABLET PO SCH ×3 (09:00→17:00)
[2018-02-19] MEDS: VALSARTAN 40 MG TABLET PO SCH ×2 (09:00→09:20)
[2018-02-19] MEDS: BESIVANCE LEFTEYE SCH ×2 (09:00→09:22)
[2018-02-19] MEDS: CARVEDILOL 6.25 MG TABLET PO SCH ×3 (09:00→21:18)
--- NOTE | 2018-02-19 09:55 | NUR ---
KRISTOPHER contacted Aracely, complaints coordinator at [address] [address] to confirm fax receipt. Aracely confirmed she received referral and will discuss with administration staff and call back with referral status.
--- NOTE | 2018-02-19 09:56 | NUR ---
GPS RN - REFUSAL NOTES Encouraged patient to take medications. Explained risks vs benefits x6 but patient continues to refuse and argue. Patient makes hand gestures and pushing medications away. SENIOR MECHANICAL ENGINEER attempted to convince patient as well but unsuccessful. Explained to patient that Antique Furniture Repairer and primary doctor highly recommends to take the aspirin and bp medications but patient continues to refuse and argue. Patient stated, "these medications are making me sick!" Will continue to encourage to take meds and increase oral intake.
[2018-02-19 16:00] VITALS: BP 118/65
[2018-02-19] MEDS: RIVAROXABAN 15 MG TABLET PO SCH (17:00)
--- NOTE | 2018-02-19 17:50 | NUR ---
GPS RN NON-ADMIN NOTES Patient refused to take pm medications. Encouraged and explained risks vs benefits x4 but patient continues to refuse. Patient stated that she does not need to take these medications and that she has the rights to refuse them. Continued to emphasized the importance of medications but patient continued to refused. Will continue to encourage patient
--- NOTE | 2018-02-19 18:26 | NUR ---
GPS RN NOTES Patient's sister came to visit. Requested for assistance to convince patient to comply with medication. Will continue to monitor and assess patient
[2018-02-19 19:41] VITALS: BP 150/64
[2018-02-19] MEDS: ATORVASTATIN 10 MG TABLET PO SCH (21:17)
[2018-02-19] MEDS: DONEPEZIL 5 MG TABLET PO SCH (21:19)
[2018-02-19] MEDS: MIRTAZAPINE 15 MG TABLET PO SCH (21:19)
[2018-02-19 23:30] VITALS: BP 134/65
[2018-02-20 08:00] VITALS: BP 150/99
[2018-02-20] MEDS: DUREZOL LEFTEYE SCH ×2 (08:52→09:00)
[2018-02-20] MEDS: BESIVANCE LEFTEYE SCH ×2 (08:52→09:00)
[2018-02-20] MEDS: CEPHALEXIN MONOHYDRATE 500 MG CAPSULE PO SCH ×3 (08:52→17:00)
[2018-02-20] MEDS: MEMANTINE HCL 5 MG TABLET PO SCH (08:53)
[2018-02-20] MEDS: CARVEDILOL 6.25 MG TABLET PO SCH ×2 (08:53→21:52)
[2018-02-20] MEDS: VALSARTAN 40 MG TABLET PO SCH (08:53)
[2018-02-20] MEDS: QUETIAPINE FUMARATE 25 MG TABLET PO SCH ×3 (08:53→17:01)
[2018-02-20] MEDS: LABETALOL HCL (100MG) 100 MG TABLET PO SCH ×2 (08:53→17:00)
--- NOTE | 2018-02-20 09:05 | NUR ---
GPS/RN-NOTES PATIENT STRONGLY REFUSED ALL EYE DROPS DESPITE EXPLANATIONS RISK AND BENEFITS. PATIENT GETS ANGRY AND ARGUMENTATIVE. STATED" I DON'T NEED ANY EYE DROPS AT ALL". OFFERED X3
--- NOTE | 2018-02-20 09:12 | NUR ---
KRISTOPHER received an email from Aracely, guest relations coordinator at [address] [id number] E: [email or web address] stating the following: "Natasha will be there to assess tomorrow morning at 10:00am"
--- NOTE | 2018-02-20 11:00 | NUR ---
Natasha RN at [address] [address] came to assess pt. Per Natasha, she will give report to Aracely, food safety coordinator and Aracely will contact with admission update.
--- NOTE | 2018-02-20 14:28 | NUR ---
KRISTOPHER faxed SNF referral to Travis assisted living coordinator at [facility] Address: [address] [facility], [place] [address] for review.
[2018-02-20 16:00] VITALS: BP 129/81
[2018-02-20] MEDS: RIVAROXABAN 15 MG TABLET PO SCH (17:07)
[2018-02-20 20:42] VITALS: BP 124/69
[2018-02-20] MEDS: MIRTAZAPINE 15 MG TABLET PO SCH (21:52)
[2018-02-20] MEDS: DONEPEZIL 5 MG TABLET PO SCH (21:52)
[2018-02-20] MEDS: ATORVASTATIN 10 MG TABLET PO SCH (21:52)
[2018-02-20] MEDS: TEMAZEPAM 7.5 MG CAPSULE PO PRN (21:53)
[2018-02-21 08:00] VITALS: BP 160/95
[2018-02-21] MEDS: MEMANTINE HCL 5 MG TABLET PO SCH (08:23)
[2018-02-21] MEDS: CEPHALEXIN MONOHYDRATE 500 MG CAPSULE PO SCH (08:23)
[2018-02-21] MEDS: VALSARTAN 40 MG TABLET PO SCH (08:24)
[2018-02-21] MEDS: CARVEDILOL 6.25 MG TABLET PO SCH ×2 (08:24→20:30)
[2018-02-21] MEDS: BESIVANCE LEFTEYE SCH (08:25)
[2018-02-21] MEDS: QUETIAPINE FUMARATE 25 MG TABLET PO SCH ×3 (08:25→16:23)
[2018-02-21] MEDS: LABETALOL HCL (100MG) 100 MG TABLET PO SCH ×2 (08:25→16:23)
[2018-02-21] MEDS: DUREZOL LEFTEYE SCH (08:26)
--- NOTE | 2018-02-21 08:29 | NUR ---
SW received a phone call from Travis, sales promotion coordinator at [facility] Address: [address] [address] [facility], [place] [address] stating pt was accepted to the facility.
--- NOTE | 2018-02-21 09:15 | NUR ---
KRISTOPHER emailed Aracely, organ recovery coordinator at [address] [address] E: [email or web address] requesting an update on evaluation and admission status.
[2018-02-21] MEDS ORDERED: hydrALAZINE HCL 25 MG TABLET PO PRN (11:30)
[2018-02-21 13:00] VITALS: BP 118/56
[2018-02-21 16:00] VITALS: BP 134/69
[2018-02-21] MEDS: RIVAROXABAN 15 MG TABLET PO SCH (16:23)
[2018-02-21 20:00] VITALS: BP 125/58
[2018-02-21] MEDS: DONEPEZIL 5 MG TABLET PO SCH (21:02)
[2018-02-21] MEDS: ATORVASTATIN 10 MG TABLET PO SCH (21:03)
[2018-02-21] MEDS: MIRTAZAPINE 15 MG TABLET PO SCH (21:03)
[2018-02-22 08:05] VITALS: BP 150/79
[2018-02-22] MEDS: BESIVANCE LEFTEYE SCH (08:31)
[2018-02-22] MEDS: QUETIAPINE FUMARATE 25 MG TABLET PO SCH ×3 (08:32→16:31)
[2018-02-22] MEDS: CARVEDILOL 6.25 MG TABLET PO SCH ×2 (08:32→20:31)
[2018-02-22] MEDS: MEMANTINE HCL 5 MG TABLET PO SCH (08:32)
[2018-02-22] MEDS: LABETALOL HCL (100MG) 100 MG TABLET PO SCH ×2 (08:33→16:32)
[2018-02-22] MEDS: VALSARTAN 40 MG TABLET PO SCH (08:33)
[2018-02-22] MEDS: DUREZOL LEFTEYE SCH (08:35)
[2018-02-22 16:20] VITALS: BP 167/78
[2018-02-22] MEDS: RIVAROXABAN 15 MG TABLET PO SCH (16:32)
[2018-02-22 18:07] VITALS: BP 128/69
--- NOTE | 2018-02-22 19:39 | NUR ---
RESTING IN BED, SISTER VISITS AT THE BEDSIDE. NO APPARENT DISTRESS NOTED. 1: SITTER AT THE BEDSIDE.
[2018-02-22 20:00] VITALS: BP 132/74
[2018-02-22] MEDS: DONEPEZIL 5 MG TABLET PO SCH (20:31)
[2018-02-22] MEDS: ATORVASTATIN 10 MG TABLET PO SCH (20:31)
[2018-02-22] MEDS: MIRTAZAPINE 15 MG TABLET PO SCH (20:32)
[2018-02-22] MEDS: TEMAZEPAM 7.5 MG CAPSULE PO PRN (20:32)
--- NOTE | 2018-02-22 20:38 | NUR ---
TEMAZEPAM 7.5 MG CAP PO GIVEN FOR SLEEP.
[2018-02-23 07:54] VITALS: BP 147/86
[2018-02-23] MEDS: VALSARTAN 40 MG TABLET PO SCH (09:02)
[2018-02-23] MEDS: LABETALOL HCL (100MG) 100 MG TABLET PO SCH ×2 (09:03→16:49)
[2018-02-23] MEDS: MEMANTINE HCL 5 MG TABLET PO SCH (09:03)
[2018-02-23] MEDS: BESIVANCE LEFTEYE SCH (09:04)
[2018-02-23] MEDS: CARVEDILOL 6.25 MG TABLET PO SCH ×2 (09:04→20:53)
[2018-02-23] MEDS: DUREZOL LEFTEYE SCH (09:05)
[2018-02-23] MEDS: QUETIAPINE FUMARATE 25 MG TABLET PO SCH ×3 (09:08→16:49)
[2018-02-23 16:16] VITALS: BP 121/73
[2018-02-23] MEDS: RIVAROXABAN 15 MG TABLET PO SCH (16:51)
[2018-02-23 20:24] VITALS: BP 126/71
[2018-02-23] MEDS: MIRTAZAPINE 15 MG TABLET PO SCH (21:40)
[2018-02-23] MEDS: ATORVASTATIN 10 MG TABLET PO SCH (21:40)
[2018-02-23] MEDS: DONEPEZIL 5 MG TABLET PO SCH (21:40)
[2018-02-24 08:00] VITALS: BP 154/86
--- NOTE | 2018-02-24 08:22 | NUR ---
KRISTOPHER emailed Aracely, client care coordinator at [address] [address] E: [email or web address] requesting an update on evaluation and admission status.
[2018-02-24] MEDS: DUREZOL LEFTEYE SCH (08:34)
[2018-02-24] MEDS: MEMANTINE HCL 5 MG TABLET PO SCH (08:35)
[2018-02-24] MEDS: BESIVANCE LEFTEYE SCH (08:35)
[2018-02-24] MEDS: QUETIAPINE FUMARATE 25 MG TABLET PO SCH ×2 (08:35→16:11)
[2018-02-24] MEDS: CARVEDILOL 6.25 MG TABLET PO SCH ×2 (08:37→21:25)
[2018-02-24] MEDS: LABETALOL HCL (100MG) 100 MG TABLET PO SCH ×2 (08:37→16:10)
[2018-02-24] MEDS: VALSARTAN 40 MG TABLET PO SCH (08:38)
--- NOTE | 2018-02-24 09:01 | NUR ---
SW received a phone call from pts sister Sharyn [phone] stating that she heard from pt that she was being discharged on this present day. SW informed sister that she has not received a DC order from psychiatrist and would inform her as soon as she does. SW also informed sister that she has not heard back from Aracely at [facility] and stated that if SW does not hear back from her on this present day, pt will be discharged to [facility]. Pts sister understood.
[2018-02-24 16:00] VITALS: BP 114/67
[2018-02-24] MEDS: RIVAROXABAN 15 MG TABLET PO SCH (16:12)
[2018-02-24] MEDS: DONEPEZIL 5 MG TABLET PO SCH (21:24)
[2018-02-24] MEDS: ATORVASTATIN 10 MG TABLET PO SCH (21:25)
[2018-02-24] MEDS: TEMAZEPAM 7.5 MG CAPSULE PO PRN (21:26)
[2018-02-24 21:33] VITALS: BP 130/73
[2018-02-24] MEDS ORDERED: MIRTAZAPINE 15 MG TABLET PO SCH (22:00)
[2018-02-25 08:00] VITALS: BP 160/89
[2018-02-25] MEDS: QUETIAPINE FUMARATE 25 MG TABLET PO SCH (09:25)
[2018-02-25] MEDS: LABETALOL HCL (100MG) 100 MG TABLET PO SCH (09:25)
[2018-02-25] MEDS: VALSARTAN 40 MG TABLET PO SCH (09:25)
[2018-02-25] MEDS: MEMANTINE HCL 5 MG TABLET PO SCH (09:25)
[2018-02-25 09:26] VITALS: BP 160/89
[2018-02-25] MEDS: CARVEDILOL 6.25 MG TABLET PO SCH (09:26)
[2018-02-25] MEDS: DUREZOL LEFTEYE SCH (09:42)
[2018-02-25] MEDS: BESIVANCE LEFTEYE SCH (09:42)
--- NOTE | 2018-02-25 12:25 | NUR ---
GPS/RN-NOTES PATIENT WAS DISCHARGE TO [facility] TODAY. AND SULMA KUMAR AWARE AND AGREED OF PATIENT DISCHARGE. REPORT WAS GIVEN TO JANINE ( FACILITY DEST NURSE). PER NOTES PATIENT SISTER WILBUR WAS AWARE OF THE PATIENT DISCHARGE.PATIENT DID NOT VERBALIZE SI/HI,DENIES VISUAL/AUDITORY HALLUCINATIONS AT THE TIME OF DISCHARGE.PATIENT LEFT THE UNIT IN STABLE CONDITION ABLE TO AMBULATE USING WALKER,ALL BELONGINGS INCLUDING X2 BOTTLE OF EYE DROPS WAS GIVEN TO THE PATIENT. PULLING UNIT FLOORHAND BY AMBULANCE VIA GURNEY WITH TWO STAFF ASSIST. Addendum: 02/25/18 at 1522 by YURIDIA GARCIA RN MJ HANCOCK (DIE CAST DIE MAKER) AWARE OF THE DISCHARGE.
--- NOTE | 2018-02-25 13:33 | NUR ---
DISCHARGE NOTE: Pt will be discharged at 12:30pm via [facility] ambulance trip #[id number] to [facility] ([facility]) [id number] [place] [phone] . Pts sister Sharyn [phone] has been notified and agreed with discharge plan. Pts mood was euthymic with congruent affect. Pt denied visual/auditory hallucinations and denied homicidal/suicidal ideations. Pt will be under the care of [employer] Team Member: Dr Gama Address: [address] [place] [address] and Psychiatrist: Dr. Charity Bradley [address] [place] [address] . The multidisciplinary exitcare form was done, printed, signed, and given to the patient.
== END 2018-02-25 12:20 | DRG 885 ==
LOC: GPS 21:56
PROVIDERS: ADMIT Psychiatry & Neurology Psychiatry; ATTEND Psychiatry & Neurology Psychiatry
DX: F29 Unspecified psychosis not due to a substance or known physiological condition (principal); N17.0 Acute kidney failure with tubular necrosis; D68.59 Other primary thrombophilia; G93.40 Encephalopathy, unspecified; Z73.6 Limitation of activities due to disability; F41.9 Anxiety disorder, unspecified; I48.91 Unspecified atrial fibrillation; M19.90 Unspecified osteoarthritis, unspecified site; E78.5 Hyperlipidemia, unspecified; Z79.01 Long term (current) use of anticoagulants; F03.90 Unspecified dementia, unspecified severity, without behavioral disturbance, psychotic disturbance, mood disturbance, and anxiety; Z82.49 Family history of ischemic heart disease and other diseases of the circulatory system; Z91.19 Patient's noncompliance with other medical treatment and regimen; Z91.14 Patient's other noncompliance with medication regimen; Z79.899 Other long term (current) drug therapy; Z88.8 Allergy status to other drugs, medicaments and biological substances; E87.6 Hypokalemia; Z85.3 Personal history of malignant neoplasm of breast; Z96.649 Presence of unspecified artificial hip joint; I10 Essential (primary) hypertension; F32.9 Major depressive disorder, single episode, unspecified
CPT/HCPCS: 36415; 70450-TC; 71045-TC; 72170-TC; 80053-TC; 80061-TC; 80305; 81000-TC; 83735-TC; 84100-TC; 84439-TC; 84443-TC; 84484-TC; 85025-TC; 85610-TC; 87081-TC; 93307-TC; A6403

== ENCOUNTER 2018-08-13 15:53 | Inpatient (IN) | payer MEDICARE, BC ==
[~2018-08-13] VITALS: Ht 167.6 cm; Wt 53.5 kg
[~2018-08-13 15:53] MED LIST changes: +CEPH-570 PO; +LABE100T5 PO; +VALS40TA4 PO; +WARF4TAB41 PO
[2018-08-13 16:23] LABS: APPEARANCE,URINE Clear (CLEAR); BILIRUBIN,URINE Negative (NEGATIVE); BLOOD, URINE Negative Ery/uL (NEGATIVE); COLOR,URINE Yellow (YELLOW); KETONES,URINE Negative (NEGATIVE); LEUKOCYTE ESTERASE ,URINE Negative (NEGATIVE); NITRITE, URINE Negative (NEGATIVE); PROTEIN,URINE Trace mg/dl (NEGATIVE); UGLUCOSE Negative (NEGATIVE); UROBILINOGEN,URINE 0.2 EU/dL (0.2)
[2018-08-13 16:30] LABS: HEMATOCRIT 44 % (33-45); HEMOGLOBIN 14.7 g/dL (11.5-14.8); LYMPHOCYTES # (AUTO) 0.8 /CMM (0.8-4.8); LYMPHOCYTES % (AUTO) 17.9 % (20.0-44.0); MEAN CORPUSCULAR HGB CONC 33 g/dl (31.0-36.0); MEAN CORPUSCULAR VOLUME 99 fL (82-100); MONOCYTES # (AUTO) 0.4 /CMM (0.1-1.30); MONOCYTES % (AUTO) 9.7 % (2.0-12.0); NEUTROPHILS # (AUTO) 3.1 /CMM (1.8-8.9); NEUTROPHILS % (AUTO) 70.4 % (43.0-81.0); PLATELET COUNT (AUTO) 198 /CMM (150-450); RED BLOOD CELL COUNT(AUTO) 4.48 MIL/uL (4.0-5.2); WHITE BLOOD COUNT (AUTO) 4.4 K/uL (4.3-11.0)
[2018-08-13 16:32] LABS: SQUAMOUS EPITHELIAL CELL,UR Rare /HPF (None Seen)
[2018-08-13 16:33] LABS: BACTERIA,URINE None seen /HPF (None Seen); RBC,URINE 0-2 /HPF (0-2); WBC,URINE 0-2 /HPF (0-3)
[2018-08-13 16:35] LABS: CALCIUM, SERUM 9.4 mg/dL (8.5-10.1); CARBON DIOXIDE 29 mmol/L (21-32); CHLORIDE 107 mmol/L (98-107); CREATININE 0.7 mg/dL (0.6-1.3); GLUCOSE 114 mg/dL (74-106); POTASSIUM 4.1 mmol/L (3.5-5.1); SODIUM SERUM 144 mmol/L (136-145); UREA NITROGEN, BLOOD 25 mg/dL (7-18)
--- NOTE | 2018-08-13 16:39 | NUR ---
BIB RA 102, PALPITATION WHILE AT A RESTAURANT WHICH RESOLVED. PATIENT A/OX3, BREATHING EVEN AND UNLABORED, DENIES PALPITATIONS AT THIS TIME. PLACED ONT HE MONITOR.
[2018-08-13 16:53] LABS: ALBUMIN 3.6 g/dL (3.4-5.0); BILIRUBIN,DIRECT 0.1 mg/dL (0.0-0.2); BILIRUBIN,TOTAL 0.5 mg/dL (0.2-1.0); TOTAL PROTEIN, SERUM 6.7 g/dL (6.4-8.2)
[2018-08-13] MEDS ORDERED: IOHEXOL-300 100 ML VIAL IV ONE (17:28)
[2018-08-13] MEDS ORDERED: CT SWABBABLE VALVE TRANS SET 1 EA INFUS.SET MC ONE (17:28)
[2018-08-13] MEDS ORDERED: IV NS 0.9% 250 ML IV ONE (17:28)
--- NOTE | 2018-08-13 17:49 | NUR ---
CALLED NURSING SUP ASKED FOR TELE BED
--- NOTE | 2018-08-13 17:55 | NUR ---
CALLED [facility] PAGED JUANCARLOS
--- NOTE | 2018-08-13 18:00 | NUR ---
PATIENT REFUSES TO STAY IN THE HOSPITAL BECAUSE SHE'S WORRIED ABOUT "BEING OUT OF HOSPICE." DR. RODRIGUEZ AT BEDSIDE TO EXPLAIN RISKS AND BENEFITS OF LEAVING WITHOUT MEDICAL TREATMENT.
--- NOTE | 2018-08-13 18:30 | NUR ---
PATIENT DENIES PALPITATION AT THIS TIME. VSS. WILL CONTINUE TO MONITOR. SISTER AT BEDSIDE.
--- NOTE | 2018-08-13 19:43 | NUR ---
ENDORSED TO ED RN FOR KENTON. PATIENT IN STABLE CONDITION, AWAITING FOR BED FROM RN INNER LAYER SCRUBBER TENDER AT THIS TIME.
--- NOTE | 2018-08-13 19:46 | NUR ---
CALLED NURSING SUP FOR TELE BED
--- NOTE | 2018-08-13 20:08 | NUR ---
TELE 311-2
--- NOTE | 2018-08-13 20:14 | NUR ---
Mick weinstein in [facility] - 08/13/18 at 2015 by MISTI REPORT CALLED TO M/Lianna DORSEY
--- NOTE | 2018-08-13 20:23 | NUR ---
RE[facility]AID[facility]. WILL TRANSPORT PT.
[2018-08-13] MEDS ORDERED: IV NS 0.9% 1,000 ML IV PRN (20:34)
[2018-08-13] MEDS ORDERED: MAG HYDROX/AL HYDROX/SIMETH 30 ML UDC PO PRN (21:00)
[2018-08-13] MEDS ORDERED: MAGNESIUM HYDROXIDE 30 ML UDC PO PRN (21:00)
[2018-08-13] MEDS: ENOXAPARIN SODIUM 40 MG/0.4 ML DISP.SYRIN SQ SCH (21:00)
[2018-08-13] MEDS ORDERED: hydrALAZINE HCL 25 MG TABLET PO PRN (21:00)
[2018-08-13] MEDS ORDERED: ZOLPIDEM TARTRATE 5 MG TABLET PO PRN (21:00)
[2018-08-13] MEDS ORDERED: HYDROCODONE/APAP 5/325MG 1 EACH TABLET PO PRN (21:00)
[2018-08-13] MEDS ORDERED: ONDANSETRON HCL/PF 4 MG/2 ML VIAL IVP PRN (21:00)
[2018-08-13] MEDS ORDERED: CARVEDILOL 6.25 MG TABLET PO ONE (21:00)
[2018-08-13] MEDS: CARVEDILOL 6.25 MG TABLET PO SCH (21:00)
[2018-08-13] MEDS ORDERED: ACETAMINOPHEN 325 MG TABLET PO PRN (21:00)
[2018-08-13] MEDS ORDERED: Z GUARD REMEDY 2 OZ OINT TP PRN (21:00)
--- NOTE | 2018-08-13 21:00 | NUR ---
RN NOTES RECEIVED PT. FROM ER WITH DX. OF PALPITATIONS, A/OX2, PT. IS CONFUSED, AGITATED, A-FIB ON TELE MONITOR, SISTER AT BEDSIDE.. PER ER NURSE PT, REFUSED HER BLOOD PRESSURE ... WE'LL WAIT PATIENT TO SETTLE DOWN AND WILL CHECK HER BLOOD PRESSURE AGAIN
[2018-08-13 21:10] VITALS: BP 156/93
[2018-08-13] MEDS ORDERED: LABETALOL HCL (100MG) 100 MG TABLET PO ONE (21:30)
--- NOTE | 2018-08-13 21:30 | NUR ---
RN NOTES NOTICE PATIENT BILATERAL LOWER EXTREMITIES WAS WRAPPED WITH BENJI BANDAGE,, REMOVED BENJI BANDAGE ON BILATERAL LOWER EXTREMITIES AND FOUND MARKED ON BILATERAL LOWER EXTREMITIES, BENJI BANDAGE WA WRAPPED TOO TIGHT AND NOTICED PT. LOWER EXTREMITIES HAS EDEMA...BILATERAL EXTREMITIES WERE ELEVATED TO TWO PILLOWS
--- NOTE | 2018-08-13 21:30 | NUR ---
RN NOTES PATIENT REFUSED HER DUE MEDICATIONS.. EXPLAINED ALL THE BENEFITS TO THE PATIENT BUT PATIENT IS CONFUSED AND STILL REFUSING THE MEDICATIONS
[2018-08-13] MEDS: ATORVASTATIN 10 MG TABLET PO SCH (22:00)
--- NOTE | 2018-08-13 23:00 | NUR ---
RN NOTES PT. CALM DOWN AND REFUSING HER IV FLUID
[2018-08-14] VITALS: BP 159/78
[2018-08-14 04:00] VITALS: BP 147/80
--- NOTE | 2018-08-14 06:42 | NUR ---
RN NOTES PT. IS AWAKE , CRYING .. PT. STATED " NOBODY LOVES HER" EXPLAINED THAT HER SISTER WAS HERE LAST NIGHT.. OFFERED JUICE TO DRINK, DENIES PAIN, NO SOB, CALL LIGHT WITHIN REACH, [id number], PT. NEEDS ATTENDED
[2018-08-14 07:10] LABS: BASOPHILS # (AUTO) 0.1 /CMM (0.0-0.2); EOSINOPHILS % (AUTO) 2.1 % (0.0-6.0); HEMATOCRIT 45 % (33-45); LYMPHOCYTES # (AUTO) 1.1 /CMM (0.8-4.8); LYMPHOCYTES % (AUTO) 29.7 % (20.0-44.0); MEAN CORPUSCULAR HGB CONC 33 g/dl (31.0-36.0); MEAN CORPUSCULAR VOLUME 98 fL (82-100); MONOCYTES # (AUTO) 0.4 /CMM (0.1-1.30); MONOCYTES % (AUTO) 11.1 % (2.0-12.0); NEUTROPHILS # (AUTO) 2.1 /CMM (1.8-8.9); NEUTROPHILS % (AUTO) 55.1 % (43.0-81.0); PLATELET COUNT (AUTO) 188 /CMM (150-450); RED BLOOD CELL COUNT(AUTO) 4.57 MIL/uL (4.0-5.2); WHITE BLOOD COUNT (AUTO) 3.8 K/uL (4.3-11.0)
--- NOTE | 2018-08-14 07:10 | NUR ---
WAFER SLICER NOTES PATIENT IN BED, ALERT ORIENTED X 2. NO ACUTE DISTRESS NOTED. BREATHING UNLABORED. NO SOB NOTED. IV ACCESS PATENT AND INTACT, NO REDNESS OR SWELLING NOTED. SAFETY MEASURES IN PLACE. CALL LIGHT WITHIN REACH. WILL CONTINUE TO MONITOR ACCORDINGLY.
--- NOTE | 2018-08-14 07:10 | NUR ---
PRODUCT APPLICATIONS ENGINEER NOTES PATIENT IN BED, ALERT ORIENTED X 3. NO ACUTE DISTRESS NOTED. BREATHING UNLABORED. NO SOB NOTED. IV ACCESS PATENT AND INTACT, NO REDNESS OR SWELLING NOTED. SAFETY MEASURES IN PLACE. CALL LIGHT WITHIN REACH. WILL CONTINUE TO MONITOR ACCORDINGLY. Addendum: 08/14/18 at 1459 by ANNI THIBODEAUX RN DISREGARD ABOVE NOTES. WRONG PATIENT.
[2018-08-14 07:32] LABS: CHOLESTEROL 179 mg/dL (<200); HDL CHOLESTEROL 82 mg/dL (40-60); LDL 88 mg/dL (0-99); TRIGLYCERIDES 66 mg/dL (30-150)
[2018-08-14 07:54] LABS: CALCIUM, SERUM 8.8 mg/dL (8.5-10.1); CARBON DIOXIDE 29 mmol/L (21-32); CHLORIDE 107 mmol/L (98-107); CREATININE 0.7 mg/dL (0.6-1.3); GLUCOSE 104 mg/dL (74-106); MAGNESIUM 2.2 mg/dL (1.8-2.4); PHOSPHORUS 3.2 mg/dL (2.5-4.9); POTASSIUM 3.4 mmol/L (3.5-5.1); SODIUM SERUM 144 mmol/L (136-145); UREA NITROGEN, BLOOD 16 mg/dL (7-18)
[2018-08-14 08:00] VITALS: BP 154/97
[2018-08-14] MEDS ORDERED: LABETALOL HCL (100MG) 100 MG TABLET PO SCH (09:00)
[2018-08-14] MEDS ORDERED: VALSARTAN 40 MG TABLET PO SCH (09:00)
[2018-08-14] MEDS ORDERED: Medication Not On Formulary EA (Warfarin Sodium (Coumadin) 1 TAB) PO SCH (09:00)
[2018-08-14] MEDS: CARVEDILOL 6.25 MG TABLET PO SCH ×2 (09:11→21:00)
[2018-08-14] MEDS: POTASSIUM CHLORIDE 20 MEQ TAB.PRT.SR PO SCH ×2 (10:13→11:25)
[2018-08-14 12:00] VITALS: BP 138/72
[2018-08-14 15:33] VITALS: BP 135/67
[2018-08-14] MEDS ORDERED: Medication Not On Formulary EA ([Rivaroxaban] 15 MG) PO SCH (17:00)
[2018-08-14] MEDS ORDERED: RIVAROXABAN 15 MG TABLET PO SCH (17:00)
--- NOTE | 2018-08-14 19:00 | NUR ---
RESIDENT PHYSICIAN NOTE RECEIVED PT IN STABLE CONDITION, A&O 2-3, WITH TIMES OF CONFUSION. CURRENTLY AWAKE, SITTING IN CHAIR WITH SITTER AT BEDSIDE. NO SIGNS OF SOB DISTRESS, NO COMPLAINTS OF PAIN. ALL CURRENT NEEDS MET. BED LOW, LOCKED, UPPER RAILS UP, AND CALL LIGHT WITHIN REACH. WILL CONT. TO MONITOR.
--- NOTE | 2018-08-14 19:00 | NUR ---
ARCHITECTURAL MODEL MAKER NOTES PATIENT IN BED, ALERT ORIENTED X 2. NO ACUTE DISTRESS NOTED. BREATHING UNLABORED. NO SOB NOTED. IV ACCESS PATENT AND INTACT, NO REDNESS OR SWELLING NOTED. DUE MEDICATIONS GIVEN, NO ASE NOTED. NEEDS ATTENDED AND ANTICIPATED.SAFETY MEASURES IN PLACE. CALL LIGHT WITHIN REACH. ENDORSED TO NIGHT NURSE FOR CONTINUITY OF CARE.
[2018-08-14] MEDS: ALBUTEROL FS 2.5 MG/3 ML VIAL.NEB NEB SCH (19:30)
[2018-08-14 20:00] VITALS: BP 99/62
[2018-08-14] MEDS: ENOXAPARIN SODIUM 40 MG/0.4 ML DISP.SYRIN SQ SCH (21:00)
--- NOTE | 2018-08-14 21:00 | NUR ---
TIN PLATER NOTE PT REFUSED ALL PM MEDICATIONS. RISKS AND BENEFITS MADE AWARE WITH VERBALIZATION OF UNDERSTANDING. WILL CONT. TO MONITOR.
--- NOTE | 2018-08-14 21:34 | NUR ---
Met with patient at bedside, she is alert and awake. States she recently moved in to [facility] [phone]. She ambulates with a walker and requires min assist with adl's. Spoke with nurse Head at [facility] and states patient was on hospice care with [facility] [phone] just prior to admission. Patient primary source of support is her sister Sharyn. Current dc plan is to return to the [facility] , sister will provide ride when discharge. Addendum: 08/14/18 at 2155 by VIANNEY MORALES RN Amended: Links added.
[2018-08-14] MEDS: ATORVASTATIN 10 MG TABLET PO SCH (21:58)
[2018-08-15] VITALS: BP 149/79
--- NOTE | 2018-08-15 06:22 | NUR ---
CONTRACT PROCESSOR NOTE PT IN STABLE CONDITION, A&O 1-2, WITH TIMES OF CONFUSION. CURRENTLY ASLEEP WITH SITTER AT BEDSIDE. NO SIGNS OF SOB DISTRESS, NO COMPLAINTS OF PAIN. ALL CURRENT NEEDS MET. BED LOW, LOCKED, UPPER RAILS UP, AND CALL LIGHT WITHIN REACH. WILL CONT. TO MONITOR AND ENDORSE TO NEXT SHIFT FOR KENTON.
[2018-08-15 06:33] LABS: BASOPHILS # (AUTO) 0.1 /CMM (0.0-0.2); BASOPHILS % (AUTO) 2.4 % (0.0-2.0); HEMATOCRIT 45 % (33-45); LYMPHOCYTES % (AUTO) 29.9 % (20.0-44.0); MEAN CORPUSCULAR HGB CONC 34 g/dl (31.0-36.0); MEAN CORPUSCULAR VOLUME 98 fL (82-100); MONOCYTES # (AUTO) 0.4 /CMM (0.1-1.30); MONOCYTES % (AUTO) 11.9 % (2.0-12.0); NEUTROPHILS # (AUTO) 1.8 /CMM (1.8-8.9); NEUTROPHILS % (AUTO) 53.8 % (43.0-81.0); PLATELET COUNT (AUTO) 182 /CMM (150-450); RED BLOOD CELL COUNT(AUTO) 4.57 MIL/uL (4.0-5.2); WHITE BLOOD COUNT (AUTO) 3.3 K/uL (4.3-11.0)
[2018-08-15 06:49] LABS: CALCIUM, SERUM 8.9 mg/dL (8.5-10.1); CARBON DIOXIDE 29 mmol/L (21-32); CHLORIDE 109 mmol/L (98-107); CREATININE 0.6 mg/dL (0.6-1.3); GLUCOSE 97 mg/dL (74-106); PHOSPHORUS 3.3 mg/dL (2.5-4.9); SODIUM SERUM 143 mmol/L (136-145); UREA NITROGEN, BLOOD 18 mg/dL (7-18)
[2018-08-15 06:58] LABS: THYROID STIMULATING HORMONE 1.623 uIU/mL (0.358-3.74)
--- NOTE | 2018-08-15 07:06 | NUR ---
HOME DEPOT REP NOTES PATIENT IN BED, ALERT ORIENTED X 2. NO ACUTE DISTRESS NOTED. BREATHING UNLABORED. NO SOB NOTED. IV ACCESS PATENT AND INTACT, NO REDNESS OR SWELLING NOTED. SAFETY MEASURES IN PLACE. CALL LIGHT WITHIN REACH. WILL CONTINUE TO MONITOR ACCORDINGLY.
[2018-08-15] MEDS: ALBUTEROL FS 2.5 MG/3 ML VIAL.NEB NEB SCH ×3 (07:35→15:19)
[2018-08-15 08:49] VITALS: BP 148/88
[2018-08-15] MEDS: CARVEDILOL 6.25 MG TABLET PO SCH (08:49)
[2018-08-15] MEDS ORDERED: VALSARTAN 40 MG TABLET PO SCH (09:00)
[2018-08-15] MEDS ORDERED: CARV6.252 PO (09:45)
[2018-08-15] MEDS ORDERED: VALS40TA4 PO (09:45)
--- NOTE | 2018-08-15 15:00 | NUR ---
MS RN NOTES PATIENT DISCHARGE HOME WITH SISTER WILBUR WITH STABLE VITAL SIGNS, NO ACUTE DISTRESS NOTED, BREATHING UNLABORED. NO SOB NOTED. DISCHARGE INSTRUCTIONS GIVEN TO THE PATIENT AND SISTER WILBUR INCLUDING FOLLOW UP WITH PRIMARY DOCTOR AND DR B[place], AND NEW PRESCRIPTIONS, VERBALIZED UNDERSTANDING. ALL BELONGINGS ACCOUNTED FOR. IV ACCESS REMOVED, NO REDNESS OR SWELLING NOTED, NO BLEEDING NOTED. NEEDS ATTENDED AND ANTICIPATED. PATIENT REFUSED PHOTO TAKEN DESPITE OF EXPLANATION OF RISK AND BENEFITS. ASSISTED TO THE LOBBY, PICKED UP BY SISTER VIA PRIVATE CAR IN STABLE CONDITION. ALERT ORIENTED X 2.
== END 2018-08-15 15:33 | disposition home or self-care (01) | DRG 308 ==
LOC: ER 15:57 → TELE 21:09 → MED 08-15 08:32
PROVIDERS: ADMIT Internal Medicine; ATTEND Internal Medicine
DX: I48.91 Unspecified atrial fibrillation (principal); K85.90 Acute pancreatitis without necrosis or infection, unspecified; I10 Essential (primary) hypertension; M19.90 Unspecified osteoarthritis, unspecified site; F03.90 Unspecified dementia, unspecified severity, without behavioral disturbance, psychotic disturbance, mood disturbance, and anxiety; E78.5 Hyperlipidemia, unspecified; Z96.649 Presence of unspecified artificial hip joint; F41.9 Anxiety disorder, unspecified; Z82.49 Family history of ischemic heart disease and other diseases of the circulatory system; Z79.01 Long term (current) use of anticoagulants; Z88.8 Allergy status to other drugs, medicaments and biological substances; Z79.899 Other long term (current) drug therapy; K76.9 Liver disease, unspecified
CPT/HCPCS: 36415; 71045-TC; 74181-TC; 80048-TC; 80061-TC; 80076-TC; 81000-TC; 83690-TC; 83735-TC; 83880; 84100-TC; 84443-TC; 84484-TC; 85025-TC; 85730-TC; 87081-TC; 87086-TC; 93307-TC; G0378; J7030; J7050; Q9967